=== PATIENT | female | born 1960 | race Caucasian/White ===

== ENCOUNTER 2023-12-18 12:55 | Outpatient (CLI) | payer OTHER | END 2023-12-18 12:56 | disposition home or self-care (01) | LOC: CSHCP 12:55 | PROVIDERS: ATTEND Internal Medicine Pulmonary Disease | DX: R06.02 Shortness of breath (principal); R06.00 Dyspnea, unspecified | CPT/HCPCS: 94060; 94664; 94726; 94729; 94760 ==